=== PATIENT | female | born 1965 | race Caucasian/White ===

== ENCOUNTER 2018-10-17 06:24 | Day surgery (SDC) | payer BC ==
[~2018-10-17 06:24] MED LIST: CEFAZOLIN 2 GM/50 ML (PMX) 50 ML IVPB; SOD CHLORIDE 0.9% 1,000 ML IV
[2018-10-17] MEDS ORDERED: CEFAZOLIN 1 GM INJ (09:12)
[2018-10-17] MEDS ORDERED: LIDOCAINE 2% (SDV) 5 ML INJ (09:12)
[2018-10-17] MEDS ORDERED: PROPOFOL 20 ML (09:12)
[2018-10-17] MEDS ORDERED: FENTAnyl 50 MCG/ML VIAL (09:12)
[2018-10-17] MEDS ORDERED: MIDAZOLAM 1 MG/ML 2 ML INJ (09:27)
[2018-10-17] MEDS ORDERED: MEPERIDINE 25 MG INJ IV (10:00)
[2018-10-17] MEDS ORDERED: ONDANSETRON 4 MG INJ IV (10:00)
[2018-10-17] MEDS ORDERED: HYDROmorphONE 1 MG/5 ML IV SYRINGE IV ×2 (10:00)
[2018-10-17] MEDS ORDERED: OXYCODONE/ACETAMINOPHEN (5/325) TAB PO ×2 (10:00)
[2018-10-17] MEDS ORDERED: DEXAMETHASONE 4 MG/ML 5 ML INJ (11:11)
[2018-10-17] MEDS ORDERED: ONDANSETRON 4 MG INJ (11:11)
[2018-10-17] MEDS ORDERED: FAMOTIDINE 20 MG INJ (11:11)
[2018-10-17] MEDS ORDERED: METOCLOPRAMIDE 10 MG INJ (11:11)
[2018-10-17] MEDS ORDERED: EPHEDrine 25 MG/5 ML SYG (11:45)
[2018-10-17] MEDS: ISOSULFAN BLUE 1% 5 ML INJ SC (12:01)
[2018-10-17] MEDS ORDERED: HYDROCODONE/APAP (7.5/325) TAB PO (12:30)
[2018-10-17] MEDS: HYDROmorphONE 1 MG/5 ML IV SYRINGE IV ×2 (12:33→12:46)
== END 2018-10-17 14:15 | disposition home or self-care (01) ==
LOC: SDS 06:24
DX: D05.92 Unspecified type of carcinoma in situ of left breast (principal)
CPT/HCPCS: 19301; 71045; 93005